=== PATIENT | male | born 1980 | race Caucasian/White ===

== ENCOUNTER 2016-11-07 20:15 | Emergency (ER) | payer MEDICAID ==
--- NOTE | 2016-11-07 21:05 | ED ---
HPI Cardiac - HPI Summary HPI Summary: The patient is a 36 year old male that presents to ED for complaint of "shortness of breath." Reports dyspnea began after going outside to smoke a cigarette. Admits to chronic cough with white sputum. Denies fever, nasal symptoms, sore throat, chest pain, palpitations, syncope, wheezing, hemoptysis, abdominal pain, nausea, vomiting, change in voiding, peripheral edema, unilateral calf pain or swelling. Admit to feeling anxious with prior history of "anxiety induced dyspnea." Also reports a pruritic rash which began after sleeping on train car prior to homeless halfway. Chronic smoker. Denies significant PMH but has not been evaluated by anyone for 5 years. Denies suicidal ideation, plan, or gesture. Denies FH. Currently from girlfriend, mother of his child, unemployed, and living in homeless halfway. - History of Current Complaint Chief Complaint: EDGeneral Stated Complaint: DIFF BREATHING Time Seen by Provider: 11/07/16 20:27 Pain Intensity: 0 - Allergy/Home Medications Allergies/Adverse Reactions: Allergies Allergy/AdvReac Type Severity Reaction Status Date / Time No Known Allergies Allergy Verified 10/15/12 14:13 PMH/Surg Hx/FS Hx/Imm Hx Infectious Disease History: No Infectious Disease History: Denies: Traveled Outside the [place] in Last 30 Days - Social History Substance Use Type: Reports: Marijuana Review of Systems Constitutional: Negative Negative: Fever, Chills ENT: Negative Negative: Sore Throat, Nasal Discharge Cardiovascular: Negative Negative: Chest Pain Positive: Shortness Of Breath, Cough Gastrointestinal: Negative Negative: Abdominal Pain, Vomiting, Nausea Positive: Rash All Other Systems Reviewed And Are Negative: Yes Physical Exam Triage Information Reviewed: Yes Vital Signs On Initial Exam: Initial Vitals Temp Pulse Resp BP Pulse Ox 98 F 99 20 146/84 97 11/07/16 20:53 11/07/16 20:53 11/07/16 20:53 11/07/16 20:53 11/07/16 20:53 Vital Signs Reviewed: Yes Appearance: Positive: Well-Appearing, No Pain Distress, Obese Skin: Positive: Warm, Skin Color Reflects Adequate Perfusion, Dry, Alex Tracts , Other - erythematous papules diffusely covering bilateral distal arms, hands, and feet. Head/Face: Positive: Normal Head/Face Inspection Eyes: Positive: Other: - Anicteric ENT: Positive: Hearing grossly normal Neck: Positive: Supple Respiratory/Lung Sounds: Positive: Clear to Auscultation, Breath Sounds Present. Negative: Rales, Rhonchi, Wheezes Diagnostics - Vital Signs Vital Signs Temp Pulse Resp BP Pulse Ox 11/07/16 20:53 98 F 99 20 146/84 97 - Laboratory Result Diagrams: 11/07/16 21:34 11/07/16 21:34 Lab Statement: Any lab studies that have been ordered have been reviewed, and results considered in the medical decision making process. Disposition - Course Assessment/Plan: The patient is a 36 male presenting for transient SOB. EKG NSR without acute ischemia. Labs reviewed and grossly unremarkable with negative troponin. CXR reviewed without acute cardiopulmonary disease. Patient asymptomatic at time of discharge. VS have remained stable without respiratory distress throughout observation in ED. Clinical impression of dyspnea and rash. Rx permethrin and prednisone burst. Educated on smoking cessation. Advised to follow-up with PCP within 1 week. - Diagnoses Provider Diagnoses: Dyspnea, Smoking addiction, Rash Discharge - Discharge Plan Condition: Stable Disposition: HOME Patient Education Materials: Acute Rash (ED), Dyspnea (ED) Referrals: Karoline Ochoa [Primary Care Provider] - 1 Week
[2016-11-07 21:44] LABS: Hematocrit 43 % (42-52); Hemoglobin 14.4 g/dl (14.0-18.0); Mean Corpuscular HGB Conc 34 g/dl (31-36); Mean Corpuscular Hemoglobin 33 pg (27-31); Mean Corpuscular Volume 96 fL (80-94); Mean Platelet Volume 9 um3 (7.4-10.4); Red Blood Count 4.43 10^6/ul (4.0-5.4); Red Cell Distribution Width 13 % (10.5-15); White Blood Count 8.9 10^3/ul (3.5-10.8)
[2016-11-07 22:07] LABS: BUN/Creatinine Ratio 17.9 (8-20); EGFR African American 85.2 (>60); EGFR Non-African American 66.2 (>60)
[2016-11-07] MEDS ORDERED: predniSONE TAB* 20 MG PO ONE ×2 (22:21)
--- NOTE | 2016-11-07 22:44 | RAD ---
Indication: Shortness of breath. 2 views of the chest including dual energy PA views demonstrate no mediastinal shift. No mediastinal shift is noted. Heart is of normal size and configuration. Lung wagner are clear. IMPRESSION: No active cardiopulmonary disease is noted.
[2016-11-08 00:08] VITALS: BP 138/88
== END 2016-11-08 00:07 | disposition home or self-care (01) ==
LOC: ED 20:15
DX: R06.00 Dyspnea, unspecified (principal); R21 Rash and other nonspecific skin eruption; F17.200 Nicotine dependence, unspecified, uncomplicated
CPT/HCPCS: 36415; 71020; 80048; 85025; 93005; 99282; J7512